=== PATIENT | male | born 1950 ===

== ENCOUNTER 2019-06-18 19:22 | Emergency (ER) ==
[~2019-06-18] VITALS: Ht 177.8 cm; Wt 96.2 kg
[2019-06-18] MEDS ORDERED: ALLOPURINOL100 MG PO (19:35)
[2019-06-18] MEDS ORDERED: GLUCOTROL XL5 MG PO (19:36)
[2019-06-18] MEDS ORDERED: FOLIC ACID1 MG PO (19:36)
[2019-06-18] MEDS ORDERED: ISOSORBIDE MONO60 MG PO (19:36)
[2019-06-18] MEDS ORDERED: LIPITOR40 MG PO (19:36)
[2019-06-18] MEDS ORDERED: FUROSEMIDE20 MG PO (19:36)
[2019-06-18] MEDS ORDERED: MULTIVITAMINS1 EAC7 PO (19:37)
[2019-06-18] MEDS ORDERED: ZESTRIL40 MG PO (19:37)
[2019-06-18] MEDS ORDERED: MAGNESIUM400 MG PO (19:37)
[2019-06-18] MEDS ORDERED: TOPROL XL100 MG PO (19:37)
[2019-06-18] MEDS ORDERED: NITROSTAT0.4 MG SL (19:38)
[2019-06-18] MEDS ORDERED: EVAC-U-GEN8.6 MG PO (19:39)
[2019-06-18] MEDS ORDERED: COUMADIN5 MG PO (19:39)
[2019-06-18] MEDS ORDERED: TERAZOSIN HCL5 MG PO (20:32)
== END 2019-06-18 20:43 | disposition home or self-care (01) ==
LOC: ED 19:22
DX: R35.0 Frequency of micturition (principal); Z76.0 Encounter for issue of repeat prescription; I25.2 Old myocardial infarction; E11.9 Type 2 diabetes mellitus without complications; I10 Essential (primary) hypertension; I48.91 Unspecified atrial fibrillation; Z95.5 Presence of coronary angioplasty implant and graft; Z91.030 Bee allergy status; Z88.5 Allergy status to narcotic agent; Z79.899 Other long term (current) drug therapy; Z79.01 Long term (current) use of anticoagulants
CPT/HCPCS: 81001; 99283